=== PATIENT | female | born 1990 | race African-American/Black ===

== ENCOUNTER 2016-10-08 10:51 | Emergency (ER) | payer SELFPAY ==
[~2016-10-08 10:51] MED LIST: CIPR250T30 PO; IBUP-1007 PO; ONDA4TAB10 SL; SILV20CR4 TP; SULF1TAB24 PO
[2016-10-08 11:51] VITALS: BP 112/69
[2016-10-08] MEDS ORDERED: CLIN300C86 PO (13:19)
--- NOTE | 2016-10-08 13:20 | PHYS DOC ---
Past Medical History Past Medical History: No Pertinent History Past Surgical History: No Surgical History Alcohol Use: None Drug Use: Marijuana Adult General Chief Complaint Chief Complaint: EYE PROBLEMS [facility] Patient is a 26 year old left eye swelling and pain that was present when woke up this am. Denies fever, contact lens, foreign body, visual disturbance or other accompanying symptoms. Review of Systems Review of Systems Constitutional: Denies fever or chills Eyes: Denies change in visual acuity. swelling and redness to eyelid today. Denies drainage or matting to eye HENT: Denies nasal congestion or sore throat Respiratory: Denies cough or shortness of breath Cardiovascular: No additional information not addressed in HPI GI: Denies abdominal pain, nausea, vomiting, bloody stools or diarrhea : Denies dysuria or hematuria Musculoskeletal: Denies back pain or joint pain Integument: Denies rash or skin lesions Neurologic: Denies headache, focal weakness or sensory changes [] Endocrine: Denies polyuria or polydipsia [] Allergies Allergies Allergies Coded Allergies Type Severity Reaction Last Updated Verified No Known Drug Allergies 03/21/16 No Physical Exam Physical Exam Constitutional: Well developed, well nourished, no acute distress, non-toxic appearance. HENT: Normocephalic, atraumatic, bilateral external ears normal, oropharynx moist, no oral exudates, nose normal. Eyes: PERRLA, EOMI, conjunctiva normal, no discharge. Upper lid has mild swelling and erythema Neck: Normal range of motion, no tenderness, supple, no stridor. Cardiovascular:Heart rate regular rhythm, no murmur Lungs & Thorax: Bilateral breath sounds clear to auscultation Abdomen: Bowel sounds normal, soft, no tenderness, no masses, no pulsatile masses. Skin: Warm, dry, no erythema, no rash. Back: No tenderness, no CVA tenderness. Extremities: No tenderness, no cyanosis, no clubbing, ROM intact, no edema. [] Neurologic: Alert and oriented X 3, normal motor function, normal sensory function, no focal deficits noted. [] Psychologic: Affect normal, judgement normal, mood normal. [] Current Patient Data Vital Signs Vital Signs Date Time Temp Pulse Resp B/P Pulse Ox O2 Delivery O2 Flow Rate FiO2 10/08/16 11:51 98.2 97 20 100 Room Air 98.2 EKG EKG [] Radiology/Procedures Radiology/Procedures [] Impressions: 1. Periorbital cellulitis left eye Course & Med Decision Making Course & Med Decision Making Pertinent Labs and Imaging studies reviewed. (See chart for details) [] Dragon Disclaimer Dragon Disclaimer This electronic medical record was generated, in whole or in part, using a voice recognition dictation system. Departure Departure Impression: Primary Impression: Periorbital cellulitis of left eye Disposition: HOME, SELF-CARE Condition: STABLE Referrals: NO PCP (PCP) Patient Instructions: Periorbital Cellulitis Additional Instructions: Take medication as prescribed. Return if fever, visual changes, difficulty moving eye or any other concerns. Follow up with primary doctor in 1-2 days Scripts Clindamycin Hcl 300 Mg Capsule1 Cap PO TID #30 CAP Prov:NATANAEL SINGH APRN 10/08/16 NATANAEL SINGH APRN Oct 08, 2016 13:20
== END 2016-10-08 13:39 | disposition home or self-care (01) ==
LOC: ER 10:51
DX: L03.213 Periorbital cellulitis (principal); F12.10 Cannabis abuse, uncomplicated
CPT/HCPCS: 99283

== ENCOUNTER 2017-03-06 18:57 | Emergency (ER) | payer SELFPAY ==
[~2017-03-06] VITALS: Ht 157.5 cm; Wt 78.5 kg
[~2017-03-06 18:57] MED LIST changes: +CLIN300C8 PO; +SILV20CR14 TP; -SILV20CR4 TP
[2017-03-06 19:33] LABS: BILIRUBIN,URINE NEGATIVE (NEG); GLUCOSE,URINE NEGATIVE (NEG); NITRITE,URINE NEGATIVE (NEG); PH,URINE 7.5; PROTEIN,URINE NEGATIVE (NEG-TRACE)
[2017-03-06 19:38] LABS: BASO % 1 % (0-3); EOS % 5 % (0-3); HEMATOCRIT 39.1 % (36.0-47.0); HEMOGLOBIN 12.8 g/dL (12.0-15.5); LYMPH # 2.4 x10^3/uL (1.0-4.8); LYMPH % 30 % (24-48); MEAN CORPUSCULAR HEMOGLOBIN 27 pg (25-35); MEAN CORPUSCULAR HGB CONC 33 g/dL (31-37); MEAN CORPUSCULAR VOLUME 84 fL (79-100); MONO % 8 % (0-9); NEUT % 56 % (31-73); PLATELET COUNT 298 x10^3/uL (140-400); RED BLOOD COUNT 4.67 x10^6/uL (3.50-5.40); RED CELL DISTRIBUTION WIDTH 13.9 % (11.5-14.5); WHITE BLOOD COUNT 7.9 x10^3/uL (4.0-11.0)
[2017-03-06 19:45] LABS: BACTERIA,URINE 0 /HPF (0-FEW); SQUAMOUS EPITHELIAL CELL,UR FEW /LPF
[2017-03-06] MEDS ORDERED: IV NORMAL SALINE 1000ML BAG 1,000 ML IV ONE (19:45)
[2017-03-06 19:50] LABS: CREATININE 0.9 mg/dL (0.6-1.0); GFR 93.1; POTASSIUM 3.3 mmol/L (3.5-5.1)
--- NOTE | 2017-03-06 20:59 | RAD ---
PQRS Compliance Statement: One or more of the following individualized dose reduction techniques were utilized for this examination: 1. Automated exposure control 2. Adjustment of the mA and/or kV according to patient size 3. Use of iterative reconstruction technique CT HEAD WITHOUT CONTRAST History: syncope x 1 day Comparison: None. Procedure: Axial images are obtained of the head from the skull base through the vertex without IV contrast. Findings: There are relatively symmetric areas of low attenuation in the bilateral parietal subcortical white matter. The ventricles and sulci are normal for the patient's age. No mass-effect, midline shift, hemorrhage, or extra-axial fluid collection is identified. Basilar cisterns are patent. Bone windows demonstrate no acute calvarial abnormality. The visualized paranasal sinuses are clear. Mastoid air cells are well aerated. IMPRESSION: Relatively symmetric areas of low attenuation in the bilateral parietal subcortical white matter. Differential diagnosis is broad. Recommend further evaluation with MR brain with and without contrast. Electronically signed by: Ross Zarate MD (03/06/2017 8:56 PM)
[2017-03-06 23:08] VITALS: BP 117/73
--- NOTE | 2017-03-07 02:10 | ED.ADGEN ---
Past Medical History Past Medical History: No Pertinent History Past Surgical History: No Surgical History Alcohol Use: None Drug Use: None Adult General Chief Complaint Chief Complaint: MULTIPLE COMPLAINTS HPI HPI Patient is a 26 year old woman, with no significant past medical history, who presents emergency Department with a complaint of syncope. Patient states that yesterday after coming home from work, she was walking across her living room when she began feeling hot, nauseous, felt her vision narrowing, and had a brief syncopal episode. She states that she fell forward landing onto her dansih living room. Her cousin was present for this event. She states she remembers beginning to fall, and waking up on the carpet shortly after falling. She denies any chest pain, any shortness of breath, any palpitations, any vomiting, any fevers or chills, any vision changes, any focal weakness numbness or tingling. No seizure activity reported, no loss of bowel or bladder control. Patient denies any drugs, alcohol or cigarette exposure, she works at [employer] in the kitchen, and states that it was hot in the kitchen she was attempting to stay well-hydrated. She states a similar episode occurred about 3 years ago, at that time she was told that it was "just hot outside". Patient states that she was having a headache shortly before this event occurred, and continues to have headache now she describes is a pressure behind both her eyes on the side of her head. She states that it is different from any headache she strains previously. No swelling extremities, recent travel or surgery, patient denies any family history of sudden cardiac , or of PE. She states however that her father did s that her father experienced a stroke and a heart attack at age 28. She does not have any additional information. Uffer a heart attack at age 30 , she does not have any additional information. No medications prior to arrival in the ED, aside from ibuprofen yesterday. Review of Systems Review of Systems Constitutional: Denies fever or chills. [] Eyes: Denies change in visual acuity. [] HENT: Denies nasal congestion or sore throat. [] Respiratory: Denies cough or shortness of breath. [] Cardiovascular: Denies chest pain or edema. [] GI: Denies abdominal pain, nausea, vomiting, bloody stools or diarrhea. [] : Denies dysuria. [] Musculoskeletal: Denies back pain or joint pain. [] Integument: Denies rash. [] Neurologic: Denies focal weakness or sensory changes. [] Headache. Endocrine: Denies polyuria or polydipsia. [] Lymphatic: Denies swollen glands. [] Psychiatric: Denies depression or anxiety. [] Current Medications Current Medications Current Medications Medications (Trade) Dose Ordered Sig/Lon Start Time Stop Time Status Last Admin Dose Admin Sodium Chloride 1,000 ml @ 1,000 mls/hr 1X ONCE 03/06/17 19:45 03/06/17 20:44 DC 03/06/17 19:40 1,000 MLS/HR Allergies Allergies Allergies Coded Allergies Type Severity Reaction Last Updated Verified No Known Drug Allergies 03/21/16 No Physical Exam Physical Exam Constitutional: Well developed, well nourished, no acute distress, non-toxic appearance. [] HENT: Normocephalic, atraumatic, bilateral external ears normal, oropharynx moist, no oral exudates, nose normal. [] Eyes: PERRLA, EOMI, conjunctiva normal, no discharge. [] Neck: Normal range of motion, no tenderness, supple, no stridor. [] Cardiovascular:Heart rate regular rhythm, no murmur , S1, S2, no rubs or gallops. [] Lungs & Thorax: Bilateral breath sounds clear to auscultation, no wheezing, rhonchi, rales. No chest or crepitus or tenderness. [] Abdomen: Bowel sounds normal, soft, no tenderness, no masses, no pulsatile masses. [] Skin: Warm, dry, no erythema, no rash. [] Back: No tenderness, no CVA tenderness. [] Extremities: No tenderness, no cyanosis, no clubbing, ROM intact, no edema. Negative Homans sign. [] Neurologic: Alert and oriented X 3, normal motor function, normal sensory function, no focal deficits noted. [] Psychologic: Affect normal, judgement normal, mood normal. [] Current Patient Data Vital Signs Vital Signs Date Time Temp Pulse Resp B/P (MAP) Pulse Ox O2 Delivery O2 Flow Rate FiO2 03/06/17 23:08 46 18 117/73 (88) 100 Room Air 03/06/17 19:05 97.7 97.7 Lab Values Laboratory Tests Test 03/06/17 18:21 03/06/17 19:05 03/06/17 19:25 POC Urine HCG, Qualitative Hcg negative (Negative) Urine Collection Type Unknown Urine Color Yellow Urine Clarity Clear Urine pH 7.5 Urine Specific [place] 1.020 Urine Protein Negative mg/dL (NEG-TRACE) Urine Glucose (UA) Negative mg/dL (NEG) Urine Ketones (Stick) Negative mg/dL (NEG) Urine Blood Negative (NEG) Urine Nitrite Negative (NEG) Urine Bilirubin Negative (NEG) Urine Urobilinogen Dipstick 1.0 mg/dL (0.2 mg/dL) Urine Leukocyte Esterase Trace (NEG) Urine RBC 1-2 /HPF (0-2) Urine WBC 1-4 /HPF (0-4) Urine Squamous Epithelial Cells Few /LPF Urine Bacteria 0 /HPF (0-FEW) Urine Mucus Mod /LPF White Blood Count 7.9 x10^3/uL (4.0-11.0) Red Blood Count 4.67 x10^6/uL (3.50-5.40) Hemoglobin 12.8 g/dL (12.0-15.5) Hematocrit 39.1 % (36.0-47.0) Mean Corpuscular Volume 84 fL (79-100) Mean Corpuscular Hemoglobin 27 pg (25-35) Mean Corpuscular Hemoglobin Concent 33 g/dL (31-37) Red Cell Distribution Width 13.9 % (11.5-14.5) Platelet Count 298 x10^3/uL (140-400) Neutrophils (%) (Auto) 56 % (31-73) Lymphocytes (%) (Auto) 30 % (24-48) Monocytes (%) (Auto) 8 % (0-9) Eosinophils (%) (Auto) 5 % (0-3) H Basophils (%) (Auto) 1 % (0-3) Neutrophils # (Auto) 4.5 x10^3uL (1.8-7.7) Lymphocytes # (Auto) 2.4 x10^3/uL (1.0-4.8) Monocytes # (Auto) 0.6 x10^3/uL (0.0-1.1) Eosinophils # (Auto) 0.4 x10^3/uL (0.0-0.7) Basophils # (Auto) 0.0 x10^3/uL (0.0-0.2) Sodium Level 142 mmol/L (136-145) Potassium Level 3.3 mmol/L (3.5-5.1) L Chloride Level 106 mmol/L (98-107) Carbon Dioxide Level 30 mmol/L (21-32) Anion Gap 6 (6-14) Blood Urea Nitrogen 7 mg/dL (7-20) Creatinine 0.9 mg/dL (0.6-1.0) Estimated GFR (Cockcroft-Gault) 93.1 Glucose Level 92 mg/dL (70-99) Calcium Level 9.0 mg/dL (8.5-10.1) Troponin I Quantitative < 0.017 ng/mL (0.000-0.055) Laboratory Tests 03/06/17 19:25 Laboratory Tests 03/06/17 19:25 EKG EKG EC: Sinus bradycardia, heart rate 48 bpm, upright axis, QTC of 355, UT of 168, QRS of 88, no ST elevations or depressions, no evidence of concerning contour normality is. As interpreted by me. Radiology/Procedures Radiology/Procedures [][facility] [address] [place] [address] IMAGING REPORT Signed PATIENT: ALEX MORILLO ACCOUNT: [id number] : 1990 LOCATION: ER AGE: 26 SEX: F EXAM STATUS: REG ER ORD. PHYSICIAN: CHAYO WISE DO REASON: MARKS/Syncope PROCEDURE: CT HEAD WO CONTRAST PQRS Compliance Statement: One or more of the following individualized dose reduction techniques were utilized for this examination: 1. Automated exposure control 2. Adjustment of the mA and/or kV according to patient size 3. Use of iterative reconstruction technique CT HEAD WITHOUT CONTRAST History: syncope x 1 day Comparison: None. Procedure: Axial images are obtained of the head from the skull base through the vertex without IV contrast. Findings: There are relatively symmetric areas of low attenuation in the bilateral parietal subcortical white matter. The ventricles and sulci are normal for the patient's age. No mass-effect, midline shift, hemorrhage, or extra-axial fluid collection is identified. Basilar cisterns are patent. Bone windows demonstrate no acute calvarial abnormality. The visualized paranasal sinuses are clear. Mastoid air cells are well aerated. IMPRESSION: Relatively symmetric areas of low attenuation in the bilateral parietal subcortical white matter. Differential diagnosis is broad. Recommend further evaluation with MR brain with and without contrast. Electronically signed by: Juancho Zarate MD (03/06/2017 8:56 PM) DICTATED and SIGNED BY: JUANCHO ZARATE MD DATE: 03/06/172050 CC: CHAYO WISE DO; NO PCP ~ Chest x-ray: One view: Normal cardiopulmonary silhouette, no infiltrates, no effusions, no pneumothorax, no soft tissue or bony abnormalities identified. As interpreted by me. Course & Med Decision Making Course & Med Decision Making Pertinent Labs and Imaging studies reviewed. (See chart for details) Patient with negative orthostatics in the emergency department. Description is consistent with a episode of vasovagal syncope. No concerning findings identified on ECG: Received IV fluids, telemetry studies, and after discussion at bedside with report of headache and syncope, a CT of the head was obtained along with chest x-ray. Imaging laboratory studies are unremarkable, however CT was noted to have nonspecific findings, relatively symmetric areas of low attenuation in the bilateral parietal subcortical white matter. I did speak with Dr. Zarate of radiology regarding these findings, he stated that his could be consistent with a number of findings, although there are not any acute appearing abnormalities. I also spoke with Dr. Whitehead of neurosurgery, who concurred that the findings could be indicative of a number of etiologies, including congenital insult, or migraine headache, or evidence of MS. He concurs that there is no evidence of acutely concerning findings at this time, and no findings that would be connected to the patient's episode of syncope, recommended the patient follow up with her primary care provider for MRI in the outpatient setting. I did discuss at length with the patient at bedside. Patient states that she will obtain insurance or her job beginning of March, therefore in less than 2 weeks, and that she will follow-up with a primary care provider at that time and be able to be referred for MRI. I also discussed the availability of clinics in the area for follow-up. Discussed importance of follow-up to obtain additional evaluation of the epidural CT findings, patient was also given patient is feeling well at this time, states that she is rated be discharged home. We discussed concerning symptoms that prompt return to the ED, importance of staying well-hydrated, getting plenty of rest. 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 Dragon Disclaimer Dragon Disclaimer This electronic medical record was generated, in whole or in part, using a voice recognition dictation system. Departure Impression: Primary Impression: Syncope Additional Impression: Headache Disposition: 01 HOME, SELF-CARE Condition: IMPROVED Problem Qualifiers CHAYO WISE DO Mar 07, 2017 02:10
--- NOTE | 2017-03-07 07:14 | EKG ---
[facility] [address] [place] [address] Test Date: 2017-03-06 Test Time: 19:19:27 Pat Name: ALEX MORILLO Department: Room: Gender: F [employer] Watch Officer: : 1990 Requested By: CHAYO WISE Order Number: [id number] Reading MD: Measurements Intervals [place] Rate: 48 P: 60 IA: 168 QRS: 59 QRSD: 88 T: 59 QT: 398 QTc: 355 Interpretive Statements SINUS BRADYCARDIA NON SPECIFIC T ABNORMALITY RI6.01 Unconfirmed report No previous ECG available for comparison
--- NOTE | 2017-03-07 07:59 | RAD ---
AP PORTABLE CHEST Clinical Indication: Syncope. Passed out yesterday. Headache and weakness today. Comparison: None. Findings: The cardiomediastinal silhouette is normal. Lungs are clear. There is no pneumothorax. No pleural effusion is appreciated. There is no acute bone abnormality. IMPRESSION: No acute cardiopulmonary process.
== END 2017-03-06 23:05 | disposition home or self-care (01) ==
LOC: ER 18:57
DX: R55 Syncope and collapse (principal); R51 Headache; R11.0 Nausea; Z82.49 Family history of ischemic heart disease and other diseases of the circulatory system
CPT/HCPCS: 36415; 70450; 71010; 80048; 81001; 81025; 84484; 85027; 93005; 96360; 96361; 99285; J7030

== ENCOUNTER 2017-12-26 13:11 | Emergency (ER) | payer SELFPAY ==
[2017-12-26 13:51] LABS: URINE HCG POC HCG NEGATIVE (Negative)
[2017-12-26] MEDS: AZITHROMYCIN 250 MG TABLET. PO (14:34)
[2017-12-26] MEDS: cefTRIAXone IM 250 MG VIAL IM (14:34)
[2017-12-26] MEDS: metroNIDAZOLE 500 MG TABLET PO (14:35)
[2017-12-26 14:51] LABS: BILIRUBIN,URINE NEGATIVE (NEG); CLARITY,URINE CLEAR; COLOR,URINE YELLOW; GLUCOSE,URINE NEGATIVE (NEG); NITRITE,URINE NEGATIVE (NEG); PH,URINE 6.5; PROTEIN,URINE 100 mg/dL (NEG-TRACE)
[2017-12-26 15:03] LABS: BACTERIA,URINE MOD /HPF (0-FEW); SQUAMOUS EPITHELIAL CELL,UR MANY /LPF
[2017-12-28 13:22] LABS: CHLAMYDIA PROBE Negative (Negative); GC PROBE Negative (Negative)
[2017-12-29 19:19] LABS: HERPES SIMPLEX TYPE 1 Positive (Negative); HERPES SIMPLEX TYPE 2 Negative (Negative)
== END 2017-12-26 15:28 | disposition home or self-care (01) ==
LOC: ER 13:11
DX: N89.8 Other specified noninflammatory disorders of vagina (principal)
CPT/HCPCS: 81001; 81025; 87491; 87529; 87591; 96372; 99284-25; J0696; Q0111; Q0144